=== PATIENT | male | born 1990 | race Two or more races ===

== ENCOUNTER 2017-03-22 18:47 | Emergency (ER) | payer MEDICAID ==
[~2017-03-22] VITALS: Ht 185.4 cm; Wt 88.5 kg
[2017-03-22 18:53] VITALS: BP 145/91
== END 2017-03-22 20:46 | disposition home or self-care (01) ==
LOC: ER 18:51
DX: F41.9 Anxiety disorder, unspecified (principal); F10.239 Alcohol dependence with withdrawal, unspecified; F32.9 Major depressive disorder, single episode, unspecified; F17.210 Nicotine dependence, cigarettes, uncomplicated
CPT/HCPCS: 93005